=== PATIENT | female | born 1965 | race Caucasian/White ===

== ENCOUNTER 2020-08-17 03:50 | Outpatient (CLI) | payer MEDICAID, SELFPAY ==
[2020-08-17 09:24] LABS: Hemoglobin A1C 6.3 % (<5.7)
[2020-08-17 09:34] LABS: HCT 42.3 % (36.0-46.0); HGB 13.9 g/dL (11.2-15.7); MCH 27.1 pg (27.0-33.0); MCHC 32.9 % (32.0-36.0); MCV 82.6 fL (80-95); MPV 10.1 fL (8.0-11.0); Platelet Count 280 10^3/uL (130-400); RBC 5.12 10^6/uL (3.93-5.22); RDW 12.9 % (11.7-14.6); RDW-SD 38.6 fL; WBC 5.59 10^3/uL (4.4-10.8)
[2020-08-17 10:08] LABS: ALT 40 U/L (14-59); AST 16 U/L (15-37); Alkaline Phosphatase 82 U/L (46-116); Anion Gap 10.1 mmol/L (3-11); BUN 24 mg/dL (7-18); Bilirubin, Total 0.3 mg/dL (0.2-1.0); CO2 29.9 mmol/L (21.0-32.0); CREATININE 0.8 mg/dL (0.55-1.02); Calcium 9.1 mg/dL (8.5-10.1); Calculated LDL 163 mg/dL (<100); Chloride 103 mmol/L (98-107); Cholesterol 238 mg/dL (<200); Glucose 121 mg/dL (74-106); HDL Cholesterol 38 mg/dL (40-60); Potassium 3.7 mmol/L (3.5-5.1); Sodium 143 mmol/L (136-145); Total Protein 6.9 g/dL (6.4-8.2); Triglyceride 187 mg/dL (<150)
[2020-08-17 10:26] LABS: NT-proBNP 29 pg/mL (<300)
== END 2020-08-17 03:51 | disposition home or self-care (01) ==
LOC: LBO 03:50
PROVIDERS: PCP Nurse Practitioner Family; Visit Provider Nurse Practitioner Family
DX: R06.02 Shortness of breath (principal); R73.03 Prediabetes
CPT/HCPCS: 36415; 80053; 80061; 85027; 83036; 83880

== ENCOUNTER 2020-08-26 01:47 | Outpatient (CLI) | payer MEDICAID, SELFPAY ==
--- NOTE | 2020-08-26 07:30 | DI.US_ITS ---
APPROVED REPORT EXAM: Comprehensive 2D, Doppler, and color-flow Echocardiogram Patient Location: Out-Patient Briefcase Sewer: Darling [place] RDCS (AE) Indications: Bilateral edema,SOB at rest Other Information Study Quality: Technically Difficult. Technically limited study due to body habitus. Conclusion This is a technically difficult study. Left Ventricle : The left ventricle is normal size. The left ventricular systolic function is normal. The left ventricular ejection fraction is within the normal range. There is normal left ventricular wall thickness. There is normal LV segmental wall motion. The left ventricular diastolic function is normal. LVEF is 60%. Right Ventricle : The right ventricle is normal size. The right ventricular systolic function is norm al. Atria : The left atrium size is normal. The right atrium size is normal. Valves: There are no hemodynamically significant valvular lesions. Great Vessels : Aortic root is mildly dilated. The ascending aorta is mildly dilated. Aortic arch is normal in caliber. IVC is normal in size and collapses >50% with inspiration. Please see remainder of study for further details. Wall motion Left Ventricle The left ventricle is normal size. The left ventricular systolic function is normal. The left ventric ular ejection fraction is within the normal range. There is normal left ventricular wall thickness. T here is normal LV segmental wall motion. The left ventricular diastolic function is normal. There is no ventricular septal defect visualized. LVEF is 60%. Right Ventricle The right ventricle is normal size. The right ventricular systolic function is normal. Atria The left atrium size is normal. The right atrium size is normal. The interatrial septum is intact wit h no evidence for an atrial septal defect. Aortic Valve The aortic valve is normal in structure. Aortic valve is trileaflet. There is no aortic valvular sten osis. No aortic regurgitation is present. Mitral Valve The mitral valve is normal in structure. No evidence of mitral valve stenosis. Trace mitral regurgita tion. Tricuspid Valve The tricuspid valve is normal in structure. There is no tricuspid valve stenosis. Trace tricuspid reg urgitation. Unable to assess PA pressure. Pulmonic Valve Pulmonic valve is not well visualized. There is no pulmonic valvular stenosis. There is no pulmonic v alvular regurgitation. Great Vessels Aortic root is mildly dilated. The ascending aorta is mildly dilated. Aortic arch is normal in calibe r. IVC is normal in size and collapses >50% with inspiration. Pericardium There is no pericardial effusion. 2D Dimensions IVSD d PLAX 0.96 cm F: 0.6-1.0 LV Vol A2C d MOD 119.3 mL LVPW d PLAX 0.98 cm F: 0.6 - 1.0 LV Vol A4C d MOD 135.9 mL LVID d PLAX 4.98 cm F: 3.8 - 5.2 LA vol/ BSA A2C s A-L 19.9 mL/m2 LVDs 3.40 cm F: 2.2 - 3.5 LA vol/ BSA A4C s A-L 15.9 mL/m2 Ao Root d 3.40 cm F: 2.7 - 3.3 LA Vol/ BSA Biplane s A-L 18.7 mL/m2 RA Area A4C 10.66 cm2 LA Area A4C s MOD 14.94 cm2 RA Vol/ BSA A4C s A-L 8.7 mL/m2 LA Area A2C s MOD 17.60 cm2 Ao Asc Diam d 3.32 cm F: 2.3 - 3.1 LV EF A4C MOD 60.4 % LV EF Teichholz 58.9 % LV EF A2C MOD 58.4 % LVEF (Coffey's) 59.76 % F: 54 - 74 LV EF Biplane MOD 59.8 % LV Volume 89.01 mL F: 46 - 106 SV 77.05 mL LV Volume Index 33.97 mL/m2 F: 29 - 61 SV Index 29.34 mL/m2 LV Vol Biplane MOD 128.9 mL FS 31.25 % M-Mode TAPSE 2.34 cm (M/F) >1.7 LV Diastology MV E' medial 0.132 (>0.07 m/s) E/A Ratio 0.9 LV E/e MED 5.65 (<14) MV E Vmax 0.75 (0.4-1.3 m/s) MV E' lateral 0.106 (>0.1 m/s) MV A Vmax 0.80 (0.4-1.3 m/s) LV E/e LAT 7.05 (<14) MV E/A Ratio 0.89 MV E/E' medial 5.68 MV E/E' lateral 7.08 Aortic Valve LVOT Area 2.95 cm2 AoV Area Vmax 2.54 cm2 LVOT Vmax 1.17 m/s AoV Area/ BSA (Vmax) 0.97 cm2/m2 LVOT Mean Girish. 0.76 m/s KRISTEN Mean Girish. 2.42 cm2 LVOT Peak Grad 5.5 mmHg KRISTEN Mean Girish. Index 0.92 cm2/m2 LVOT Mean Grad 2.8 mmHg LVOT VTI 0.244 m LVOT Diam s 1.90 cm AoV Vmax 1.36 m/s Velocity Ratio 0.86 AoV Mean Girish. 0.93 m/s AoV Peak Grad 7.4 mmHg LVOT SV 72.14 mL AoV Mean Grad 3.8 mmHg AoV VTI 0.269 m AoV Area VTI 2.69 cm2 AoV Area/ BSA (VTI) 1.02 cm/m2 Mitral Valve MV DT 256 (160-240 msec) MV PHT 74 msec MV Area PHT 2.97 cm2 MV VTI 0.288 m MV VTI Annulus 0.296 m MV Area VTI 2.59 (4.0-6.0 cm2) Pulmonary Valve PV Vmax 0.84 (0.5-1.5 m/s) RVOT Peak Gr. 1.69 mmHg PV Peak Grad 2.8 mmHg RVOT Mean Gr. 1.15 mmHg PV Mean Grad 1.8 mmHg RVOT VTI 0.142 m PV VTI 0.177 m RVOT Vmax 0.65 m/s
== END 2020-08-26 02:07 ==
PROVIDERS: PCP Nurse Practitioner Family; Visit Provider Nurse Practitioner Family
DX: R06.02 Shortness of breath (principal); R60.0 Localized edema; I77.810 Thoracic aortic ectasia
CPT/HCPCS: 93306

== ENCOUNTER 2020-09-02 19:02 | Outpatient (CLI) | payer MEDICAID, SELFPAY ==
--- NOTE | 2020-09-02 08:30 | DI.RAD_ITS ---
EXAM: XR KNEE RT 3V AP,LAT,RADHA CLINICAL HISTORY: Left hip pain, suspecting arthritis M15.9 POLYOSTEOARTHRITIS. TECHNIQUE: 2D digital imaging was performed. COMPARISON: No exams were available for comparison FINDINGS: BONES: No acute fracture is present. No bony destructive lesion is seen. JOINTS: There is moderate to severe narrowing of the medial femoral tibial joint. There is moderate periarticular spurring throughout. No joint effusion is seen. SOFT TISSUE: Normal. 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 DATA REPOSITORY: RADIATION DOSE DELIVERED:
--- NOTE | 2020-09-02 08:30 | DI.RAD_ITS ---
EXAM: XR HIP LT COMPLETE AP PELVIS INDICATION: Left hip pain, suspecting arthritis M15.9 POLYOSTEOARTHRITIS. COMPARISON: No exams were available for comparison TECHNIQUE: 2D digital imaging was performed. FINDINGS: Exam is somewhat limited by patient body habitus. There is severe narrowing of the left hip joint, w ith a [id number] appearance.. There is prominent periarticular spurring as well as subchondral cys t formation on both sides of the joint. There are mild degenerative changes of the right hip, SI osmel nts and pubic symphysis. Degenerative changes are also noted in the lower lumbar spine. IMPRESSION: Severe degenerative changes of the left hip DATA REPOSITORY: RADIATION DOSE DELIVERED:
== END 2020-09-02 19:22 ==
PROVIDERS: PCP Nurse Practitioner Family; Visit Provider Nurse Practitioner Family
DX: M25.552 Pain in left hip (principal); M17.12 Unilateral primary osteoarthritis, left knee; R93.9 Diagnostic imaging inconclusive due to excess body fat of patient; M16.12 Unilateral primary osteoarthritis, left hip
CPT/HCPCS: 73562; 73502

== ENCOUNTER 2021-09-22 16:51 | Outpatient (REF) | payer MEDICAID, SELFPAY ==
--- NOTE | 2021-09-22 15:45 | PAPFT_PTH ---
PATIENT: Bela Waldrop I LOC: [facility] U#:[id number] AGE/SX: 56/F ROOM: RE09/22/[address]: Jennifer Simpson : 1965 BED: DIS: 09/22/2021 SPEC #: [id number] RECD: 09/23/21 12:52 STATUS: ANJELICA REQ #: [id number] NITHIN: 09/22/21 15:[address]: Jennifer Simpson DEPT: [facility] Cytology RECD BY: Keena Ruiz ENTERED: 09/23/21 12:53 SP TYPE: PAPFT OTHR DR: Tabby Davis, MECHANICAL LABORATORY TECHNICIAN Tissues: 1 - CX/ENDOCX FOR PAP SMEARS Procedures: PAP THIN PREP/[facility] Screening HPV DNA PROBE Comments: [id number]
[2021-09-22 21:01] LABS: Bilirubin Negative (Negative); Blood Negative (Negative); Clarity Clear (Clear); Glucose Negative (Negative); Ketones Negative (Negative); Leukocyte Esterase Trace (Negative); Nitrite Negative (Negative); Specific Gravity 1.025 (1.005-1.025); Urobilinogen 0.2 EU/dL (Up TO 0.2)
[2021-09-22 21:25] LABS: Epithelial Cells Moderate HPF (Negative); RBC 0-2 HPF (0-2)
[2021-09-22 21:26] LABS: Bacteria Few HPF (Negative); C & S Indicated? Yes; Crystals Negative HPF (Negative); Mucus Negative (Negative)
== END 2021-09-22 16:52 | disposition home or self-care (01) ==
LOC: LBN 16:51
PROVIDERS: PCP Nurse Practitioner Family; Visit Provider Physician Assistant
DX: Z00.00 Encounter for general adult medical examination without abnormal findings (principal); R39.89 Other symptoms and signs involving the genitourinary system; N39.0 Urinary tract infection, site not specified; N89.8 Other specified noninflammatory disorders of vagina; Z12.4 Encounter for screening for malignant neoplasm of cervix; Z11.51 Encounter for screening for human papillomavirus (HPV)
CPT/HCPCS: 88142; 81003; 81015; 87086; 87480; 87510; 87624; 87660